=== PATIENT | male | born 1945 | race Caucasian/White ===

== ENCOUNTER → 2020-01-31 | Outpatient (CLI) | payer OTHER ==
--- NOTE | 2020-01-31 11:38 | 2DMMODE ---
[place] [address] 2 D/M-MODE ECHOCARDIOGRAM Name: LUZ SMALL Room: [facility]#: [id number] Admission: 01/31/20 Attend Phys: Kvng Andrade MD Discharge: Date of : 49 Date of Service: 01/31/20 1137 Report #: [id number] THIS REPORT FOR: cc: Denis Colbert MD, Jason MD Blick, David R. MD [facility] ~ APPROVED REPORT Study performed: 01/31/2020 09:47:42 EXAM: Comprehensive 2D, Doppler, and color-flow Echocardiogram Patient Location: Out-Patient BSA: 2.13 HR: 72 bpm BP: 140/82 mmHg Other Information Study Quality: Good Indications Ischemic heart disease 2D Dimensions IVSd: 12.31 (7-11mm) LVOT Diam: 20.38 (18-24mm) LVDd: 41.98 mm PWd: 11.99 (7-11mm) Ascending Ao: 36.13 (22-36mm) LVDs: 25.82 (25-40mm) Aortic Root: 25.91 mm Volumes Left Atrial Volume (Systole) LA ESV Index: 20.50 mL/m2 Aortic Valve AoV Peak Abraham.: 3.60 m/s AO Peak Gr.: 51.84 mmHg LVOT Max P.62 mmHg AO Mean Gr.: 27.64 mmHg LVOT Mean P.10 mmHg LVOT Max V: 1.19 m/s AO V2 VTI: 64.76 cm LVOT Mean V: 0.83 m/s RAY (VTI): 1.28 cm2 LVOT V1 VTI: 25.33 cm Mitral Valve E/A Ratio: 0.78 [place] [address] 2 D/M-MODE ECHOCARDIOGRAM Name: LUZ SMALL Room: [facility]#: [id number] Admission: 01/31/20 Attend Phys: Kvng Andrade MD Discharge: Date of : 49 Date of Service: 01/31/20 1137 Report #: [id number] MV Decel. Time: 269.35 ms MV E Max Abraham.: 0.73 m/s MV PHT: 78.11 ms MVA (PHT): 2.82 cm2 TDI E/Lateral E': 12.17 E/Medial E': 12.17 Medial E' Abraham.: 0.06 m/s Lateral E' Abraham.: 0.06 m/s Pulmonary Valve PV Peak Abraham.: 1.25 m/s PV Peak Gr.: 6.22 mmHg Tricuspid Valve RAP Estimate: 5.00 mmHg TR Peak Gr.: 34.80 mmHg RVSP: 39.80 mmHg PA Pressure: 39.80 mmHg Left Ventricle The left ventricle is normal size. There is normal LV segmental wall motion. Mild concentric left ventricular hypertrophy. Left ventricular outflow tract gradient of 52 mm Hg Left ventricular systolic function is normal. The left ventricular ejection fraction is within the normal range. LVEF is 60-65%. Grade I - abnormal relaxation pattern. Right Ventricle The right ventricle is normal size. The right ventricular systolic function is normal. Atria The left atrium size is normal. The right atrium size is normal. Aortic Valve Mild aortic valve sclerosis. No aortic regurgitation is present. There is no aortic valvular stenosis. Mitral Valve There is systolic anterior motion of the mitral valve. Mild mitral regurgitation. No evidence of mitral valve stenosis. Tricuspid Valve The tricuspid valve is normal in structure. Mild tricuspid regurgitation. estimated pa pressure 40 [place] [address] 2 D/M-MODE ECHOCARDIOGRAM Name: LUZ SMALL Room: [facility]#: [id number] Admission: 01/31/20 Attend Phys: Kvng Andrade MD Discharge: Date of : 49 Date of Service: 01/31/20 1137 Report #: [id number] Pulmonic Valve Pulmonic valve is not well visualized. There is no pulmonic valvular regurgitation. Great Vessels The aortic root is normal in size. IVC is normal in size and collapses >50% with inspiration. Pericardium There is no pericardial effusion. <Conclusion> LVEF is 60-65%. Mild aortic valve sclerosis. There is systolic anterior motion of the mitral valve. Mild mitral regurgitation. Mild tricuspid regurgitation. estimated pa pressure 40 mm Hg evidence of a hypertrophic cardiomyopathy <ELECTRONICALLY SIGNED> By: Akbar Palmer MD, [facility] 01/31/20 1137 1137 1137 Akbar Palmer MD, FAC /INF
== END ==
LOC: M.CRD 09:49
PROVIDERS: ATTEND Orthopaedic Surgery
DX: I08.3 Combined rheumatic disorders of mitral, aortic and tricuspid valves (principal); I25.9 Chronic ischemic heart disease, unspecified